=== PATIENT | female | born 1965 | race Caucasian/White ===

== ENCOUNTER 2021-11-04 22:28 | Emergency (ER) | payer MEDICARE, SELFPAY ==
[2021-11-04 22:31] VITALS: BP 152/79; PULSE 86; RESP 14; TEMP 36.5; O2SAT 98
--- NOTE | 2021-11-04 23:14 | ED.WOUNDLAC ---
HPI - Wound/Laceration General Chief Complaint: Wound/Laceration Stated Complaint: finger laceration Time Seen by Provider: 11/04/21 22:47 History of Present Illness HPI narrative: 56-year-old female presents emergency room for evaluation of a laceration to her left third finger. Patient states earlier this evening she was cutting hedges, and accidentally cut herself. Patient states that she is able to control the bleeding initially. Successfully attempted to use liquid on the wound.. Patient states she bumped her finger while getting ready for bed and reopen the wound. Upon arrival to the emergency room, bleeding has been controlled. Related Data Home Medications Medication Instructions Recorded Confirmed aspirin 81 mg tablet,delayed mg 11/04/21 release cyclobenzaprine 10 mg tablet mg 11/04/21 duloxetine 60 mg capsule,delayed mg PO 11/04/21 release hydrocodone 5 mg-acetaminophen 325 tablet 11/04/21 mg tablet tizanidine 4 mg tablet mg 11/04/21 Allergies Allergy/AdvReac Type Severity Reaction Status Date / Time Penicillins AdvReac Unknown Rash Verified 07/04/18 21:08 tramadol AdvReac Vomiting Verified 11/04/21 22:47 Review of Systems Review of Systems: CONSTITUTIONAL: Denies fever, chills, or sweats. EYES: Denies visual changes, redness, or discharge. ENT: Denies rhinorrhea, congestion, sore throat, or otalgia. CARDIOVASCULAR: Denies chest pain, palpitations, or edema. RESPIRATORY: Denies cough or dyspnea. GASTROINTESTINAL: Denies abdominal pain, nausea, vomiting, or diarrhea. GENITOURINARY: Denies dysuria or hematuria. SKIN: Reports laceration to left middle finger MUSCULOSKELETAL: Denies back pain, joint pain, or myalgia. NEUROLOGIC: Denies headache, numbness, dizziness, or weakness. PSYCHIATRIC: Denies anxiety or depression. Exam Narrative: GENERAL: Well-appearing, well-nourished, no physical limitations, and in no acute distress. HEAD: Normocephalic, atraumatic. EYES: Conjunctivae normal, PERRLA and EOMI. CHEST: Clear to auscultation. No respiratory distress. No wheezes rales or rhonchi. No tenderness. HEART: Regular rate and rhythm. No murmur heard. Normal peripheral pulses. EXTREMITIES: Normal range of motion. No edema. No clubbing or cyanosis SKIN: Left hand: 1 cm linear laceration to the proximal nail fold of the third NEURO: No focal deficits. Alert and oriented x3. MAEW. CN's II-XI intact bilaterally, normal gait PSYCH: Cooperative. Normal mood and affect. Course Course Emergency Course: 2314: Wound cleaned. Dermabond applied to wound. Wound successfully closed. Vital Signs Vital signs: Vital Signs Temperature 36.5 C 11/04/21 22:31 Pulse Rate 86 11/04/21 22:31 Respiratory Rate 14 11/04/21 22:31 Blood Pressure 152/79 H 11/04/21 22:31 Pulse Oximetry 98 11/04/21 22:31 Oxygen Delivery Room Air 11/04/21 22:31 Temperature 36.5 C 11/04/21 22:31 Pulse Rate 86 11/04/21 22:31 Respiratory Rate 14 11/04/21 22:31 Blood Pressure 152/79 H 11/04/21 22:31 Pulse Oximetry 98 11/04/21 22:31 Oxygen Delivery Room Air 11/04/21 22:31 Discharge Plan Discharge Clinical Impression: Laceration Patient Disposition: Home, Self-Care Condition: Stable Instructions: Antibiotic Form, Skin Avulsion (ED) Prescriptions: No Action cyclobenzaprine 10 mg tablet tizanidine 4 mg tablet hydrocodone-acetaminophen 5-325 mg tablet aspirin 81 mg tablet,delayed release (DR/EC) duloxetine 60 mg capsule,delayed release(DR/EC) PO Follow-up/Referrals: PHYSICIAN NOT ON STAFF,NONSTAFF [Primary Care Provider] - Time of Disposition: 23:18
[2021-11-04] MEDS: TETANUS,DIPHTHERIA,AC PERTUSSIS ADULT (0.5 ML) BOOSTRIX IM (23:27)
== END 2021-11-04 23:36 | disposition home or self-care (01) ==
PROVIDERS: Emergency Provider Nurse Practitioner Family
DX: S61.213A Laceration without foreign body of left middle finger without damage to nail, initial encounter (principal); Z23 Encounter for immunization; Y93.H2 Activity, gardening and landscaping; W27.8XXA Contact with other nonpowered hand tool, initial encounter
CPT/HCPCS: 12001; 90471; 90715; 99282

== ENCOUNTER 2022-01-24 12:09 | Emergency (ER) | payer MEDICARE, SELFPAY ==
--- NOTE | 2022-01-24 12:32 | PC.NURSE ---
pts brought cell phone up to desk with pmds rn on the phone. states pts pmd is familiar with pt and that she doesnt need to be seen in the ed. pt left with .
== END 2022-01-24 13:19 | disposition left against medical advice (07) ==
DX: Z53.21 Procedure and treatment not carried out due to patient leaving prior to being seen by health care provider (principal)
CPT/HCPCS: 99199

== ENCOUNTER 2022-12-03 07:38 | Emergency (ER) | payer MEDICARE, SELFPAY ==
[2022-12-03] VITALS (11 sets, daily range): BP systolic 116–131; BP diastolic 78–88; PULSE 68–86; RESP 9–19; TEMP 37.1; O2SAT 95–100
--- NOTE | ~2022-12-03 | XR_ITS ---
XR chest 1V portable DATE: 12/03/2022 08:09 INDICATION: Chest pain TECHNIQUE: Portable AP chest on 12/03/2022 at 0805 hours COMPARISON: None FINDINGS: Normal heart size. No hilar or mediastinal enlargement. No pulmonary infiltrate or consolidation, pleural effusion or pulmonary vascular congestion or pneumo thorax is detected. IMPRESSION: No active cardiopulmonary disease Reviewed, dictated and finalized at location B.
--- NOTE | 2022-12-03 07:42 | ECG_ITS ---
Measurements Intervals [place] Rate: 89 P: 36 NH: 151 QRS: 45 QRSD: 78 T: 41 QT: 377 QTc: 459 Interpretive Statements SINUS RHYTHM WITH OCCASIONAL ECTOPIC PREMATURE COMPLEXES NONSPECIFIC T-WAVE ABNORMALITY ABNORMAL ECG NO PREVIOUS ECG AVAILABLE FOR COMPARISON Electronically Signed On 12-03-2022 12:03:06 CDT by Benjamin Monahan M.D.
--- NOTE | 2022-12-03 07:56 | ED.CHESTPAIN ---
HPI - Chest Pain General Chief Complaint: Chest Pain Stated Complaint: chest pain, sob, nausea Time Seen by Provider: 12/03/22 07:50 History of Present Illness HPI narrative: Pt presents with pressure feeling on her chest constantly for 3 days. Pt lost her 3 months ago and says she is not handling it well. Pt had zoom call with arthritis doctor 3 days ago and started new med, but she took one dose and says it made her feel bad so she stopped. Pt says her fingers and lips felt numb at voodoo yesterday and she has fel nauseated and dizzy. Related Data Home Medications Medication Instructions Recorded Confirmed aspirin 81 mg tablet,delayed mg 11/04/21 release cyclobenzaprine 10 mg tablet mg 11/04/21 duloxetine 60 mg capsule,delayed mg PO 11/04/21 release hydrocodone 5 mg-acetaminophen 325 tablet 11/04/21 mg tablet tizanidine 4 mg tablet mg 11/04/21 Allergies Allergy/AdvReac Type Severity Reaction Status Date / Time Penicillins Allergy Unknown Rash Verified 12/03/22 08:07 tramadol AdvReac Vomiting Verified 12/03/22 08:07 Review of Systems Review of Systems: All systems reviewed & are unremarkable except as noted in HPI and below Exam Const: General: healthy appearing Nutritional Appearance: well nourished Orientation/consciousness: patient oriented x3 Limitations: no limitations Eyes: Pupils: Equal, round and reactive pupils present Neck: Neck: normal visual inspection Chest: Chest palpation & inspection: normal inspection of the chest Resp: Effort & Inspection: normal respiratory effort Cardio: Rate: regular rate Rhythm: regular rhythm GI: GI Palp: Yes Soft to palpation Auscultation: normal bowel sounds Skin: General skin exam: normal color Rashes: no rashes Neuro: General: patient oriented x3, moves all extremities and no focal motor deficits Speech: normal speech Extrem: General: normal to inspection and no clubbing, cyanosis or edema Psych: Affect: Anxious affect present Attitude: cooperative Course Vital Signs Vital signs: Vital Signs Temperature 98.7 F 12/03/22 07:51 Pulse Rate 76 12/03/22 07:51 Respiratory Rate 16 12/03/22 07:51 Blood Pressure 131/88 12/03/22 07:51 Pulse Oximetry 96 12/03/22 07:51 Oxygen Delivery Room Air 12/03/22 07:51 Temperature 98.7 F 12/03/22 07:51 Pulse Rate 85 12/03/22 08:47 Respiratory Rate 13 12/03/22 08:47 Blood Pressure 131/80 12/03/22 08:47 Pulse Oximetry 97 12/03/22 08:47 Oxygen Delivery Room Air 12/03/22 07:51 MDM - Chest Pain MDM Narrative Medical decision making narrative: 57 y/o female with recent loss of presents with pressureon chest contant for 3 days. Pt has other symptoms of anxiety and seems mor panic and anxiety thatn cardiac but will check ekg and labs to be sure. labs cxr ekg and trop all ok likley anxiety ans stress. pt going to call pcp today to make appointment to talk and get prescription if needed. Lab Data 12/03/22 08:01 12/03/22 08:01 Labs: Lab Results 12/03/22 Range/Units 08:01 WBC 5.7 (4.5-10.0) K/mm3 RBC 4.15 L (4.2-5.4) M/mm3 Hgb 11.5 L (12.0-15.0) g/dL Hct 36.1 L (37.0-47.0) % MCV 87.0 (80-100) fl MCH 27.7 (26-34) pg MCHC 31.9 L (32-36) g/dl RDW 14.3 (11.5-14.5) % Plt Count 293 (150-375) k/mm3 MPV 10.1 (7.4-10.4) fl Immature Gran % (Auto) 0.3 (0-0.5) % Neut % (Auto) 73.8 H (45.5-73.1) % Lymph % (Auto) 17.4 L (18.3-44.2) % [place] % (Auto) 7.7 (2.6-8.5) % Eos % (Auto) 0.5 (0-4.4) % Baso % (Auto) 0.3 (0.2-1.2) % Lymph # (Auto) 1.00 (0.9-3.2) K/mm3 [place]lee # (Auto) 0.4 (0.1-0.6) K/mm3 Eos # (Auto) 0.0 (0-0.3) K/mm3 Baso # (Auto) 0.0 (0.0-0.1) K/mm3 Abs Immat Gran (auto) 0.02 (0.00-0.031) K/mm3 Absolute Neuts (auto) 4.2 (1.3-6.7) K/mm3 Absolute Nucleated RBC 0.0 (0.0-0.012) K/mm3 Nucleated RBC % 0.0 (0.0-0.2) % PT 14.4 (11.1-14.7) [place]
--- NOTE | 2022-12-03 08:01 | PHAR ---
CALLED ER - 2 ASA 324 MG ORDERS ENTERED
[2022-12-03 08:06] LABS: Basophils Percent Auto 0.3 % (0.2-1.2); Eosinophils Percent Auto 0.5 % (0-4.4); Hematocrit 36.1 % (37.0-47.0); Hemoglobin 11.5 g/dL (12.0-15.0); Immature Granulocyte Absolute 0.02 K/mm3 (0.00-0.031); Immature Granulocyte Percent A 0.3 % (0-0.5); Lymphocytes Percent Auto 17.4 % (18.3-44.2); Mean Corpuscular HGB Conc 31.9 g/dl (32-36); Mean Corpuscular Hemoglobin 27.7 pg (26-34); Mean Platelet Volume 10.1 fl (7.4-10.4); Monocytes Absolute Auto 0.4 K/mm3 (0.1-0.6); Monocytes Percent Auto 7.7 % (2.6-8.5); Neutrophils Absolute Auto 4.2 K/mm3 (1.3-6.7); Neutrophils Percent Auto 73.8 % (45.5-73.1); Platelet Count Result 293 k/mm3 (150-375); Red Blood Count 4.15 M/mm3 (4.2-5.4); Red Cell Distribution Width 14.3 % (11.5-14.5); White Blood Count 5.7 K/mm3 (4.5-10.0)
[2022-12-03] MEDS: ONDANSETRON INJ 4 MG/2 ML VIAL IV PUSH (08:08)
[2022-12-03] MEDS: ASPIRIN 81 MG CHEWABLE TABLET 324 MG PO (08:08)
[2022-12-03 08:17] LABS: Alanine Aminotransferase 18 U/L (6-35); Albumin Level 4.1 g/dL (3.5-5.1); Alkaline Phosphatase 103 U/L (38-126); Anion Gap 9 mmol/L (8-16); Aspartate Amino Transferase 21 U/L (14-36); Bilirubin,Total 0.6 mg/dL (0.2-1.3); Blood Urea Nitrogen 9 mg/dL (7-17); Calcium 9.5 mg/dL (8.4-10.2); Carbon Dioxide 20 mmol/L (22-30); Chloride 106 mmol/L (98-107); Estimated CRCL calculation 96 ml/min; Estimated Glomerular Filt Rate > 60; Glucose 105 mg/dL (65-110); INR 1.1; Lipase 52 U/L (23-300); Partial Thromboplastin Time 32.9 SECONDS (22.3-36.8); Potassium 3.8 mmol/L (3.4-5.0); Prothrombin Time 14.4 Seconds (11.1-14.7); Sodium 135 mmol/L (137-145)
[2022-12-03 08:28] LABS: Troponin I < 0.012 ng/mL (0.000-0.034)
== END 2022-12-03 10:02 | disposition home or self-care (01) ==
PROVIDERS: Emergency Provider Emergency Medicine
DX: F41.9 Anxiety disorder, unspecified (principal); R94.31 Abnormal electrocardiogram [ECG] [EKG]
CPT/HCPCS: 36415; 71045; 80053; 83690; 84484; 85025; 85610; 85730; 93005; 96374; 99284; A9270; J2405